=== PATIENT | female | born 1980 | race Caucasian/White ===

== ENCOUNTER 2016-07-16 13:09 | Emergency (ER) | payer BC ==
--- NOTE | 2016-07-16 13:46 | ER Document Report ---
ED Medical Screen (RME) - General Stated Complaint: LEFT EYE REDNESS,IRRITATION,SWELLING Mode of Arrival: Ambulatory Information source: Patient Notes: Patient complains of left eye redness and matting. Patient is currently wearing glasses and states she has not worn contact lenses for several weeks. Patient complains of some blurred vision to left eye. I have greeted and performed a rapid initial assessment of this patient. A comprehensive ED assessment and evaluation of the patient, analysis of test results and completion of the medical decision making process will be conducted by additional ED providers. TRAVEL OUTSIDE OF THE [place] IN LAST 30 DAYS: No - Related Data Allergies/Adverse Reactions: No Known Allergies Allergy (Verified 07/16/16 13:45) Past Medical History Pulmonary Medical History: Reports: Hx Asthma - as child Neurological Medical History: Reports: Hx Migraine Musculoskeltal Medical History: Reports Hx Arthritis Psychiatric Medical History: Reports: Hx Anxiety, Hx Bipolar Disorder, Hx Depression Infectious Medical History: Denies: Hx MRSA Past Surgical History: Reports: Hx Hysterectomy, Hx Tubal Ligation - Immunizations Immunizations up to date: Yes Hx Diphtheria, Pertussis, Tetanus Vaccination: Yes Physical Exam - Vital signs Vitals: Temp Pulse Resp BP Pulse Ox 98.2 F 76 16 106/57 L 98 07/16/16 13:16 07/16/16 13:16 07/16/16 13:16 07/16/16 13:16 07/16/16 13:16 - HEENT Conjunctiva: Injected - Left eye Course - Vital Signs Vital signs: Temp Pulse Resp BP Pulse Ox 98.2 F 76 16 106/57 L 98 07/16/16 13:16 07/16/16 13:16 07/16/16 13:16 07/16/16 13:16 07/16/16 13:16
[2016-07-16] MEDS ORDERED: NEOMY/BACITRAC ZN/POLY OINT 15 GM TP ONE (18:00)
--- NOTE | 2016-07-16 18:02 | ER Document Report ---
ED Eye Complaint - General Time seen by provider: 17:45 Mode of Arrival: Ambulatory Information source: Patient TRAVEL OUTSIDE OF THE U.[place]. IN LAST 30 DAYS: No - HPI Patient complains to provider of: Bilateral eye redness and irritation Onset: Other Associated symptoms: Other - see above - General Chief Complaint: Redness of Eye Stated Complaint: LEFT EYE REDNESS,IRRITATION,SWELLING Notes: 36 year old female presents to the ED complaining of bilateral eye erythema, irritation, and discharge that has been present since yesterday. Patient explains that the irritation started with the left eye and it spread to the right eye this morning. Patient woke up with bilateral matted eyes. Patient states that she does use contact lenses, but has not used them in the past 2 weeks. ([employer]) - Related Data Allergies/Adverse Reactions: No Known Allergies Allergy (Verified 07/16/16 13:45) Past Medical History - General Information source: Patient - Social History Smoking Status: Current Every Day Smoker Chew tobacco use (# tins/day): Yes Family History: Reviewed & Not Pertinent Patient has suicidal ideation: No Patient has homicidal ideation: No Pulmonary Medical History: Reports: Hx Asthma - as child Neurological Medical History: Reports: Hx Migraine Renal/ Medical History: Denies: Hx Peritoneal Dialysis Musculoskeltal Medical History: Reports Hx Arthritis Psychiatric Medical History: Reports: Hx Anxiety, Hx Bipolar Disorder, Hx Depression Infectious Medical History: Denies: Hx MRSA Past Surgical History: Reports: Hx Hysterectomy, Hx Tubal Ligation - Immunizations Immunizations up to date: Yes Hx Diphtheria, Pertussis, Tetanus Vaccination: Yes Review of Systems - Review of Systems Constitutional: No symptoms reported EENT: See HPI, Eye discharge - bilateral, Blurred vision, Other - Bilateral eye erythema and irritation Cardiovascular: No symptoms reported Respiratory: No symptoms reported Gastrointestinal: No symptoms reported Genitourinary: No symptoms reported Female Genitourinary: No symptoms reported Musculoskeletal: No symptoms reported Skin: No symptoms reported Hematologic/Lymphatic: No symptoms reported Neurological/Psychological: No symptoms reported Physical Exam - Vital signs Interpretation: Normal - General General appearance: Alert In distress: None - HEENT Head: Normocephalic, Atraumatic Eyes: Other - left sclera erythema with green/yellow discharge on the eye lids. Right eye normal.. No: Normal Extraocular movements intact: Yes Pupils: PERRL - Respiratory Respiratory status: No respiratory distress Breath sounds: Normal - Cardiovascular Rhythm: Regular Heart sounds: Normal auscultation - Abdominal Inspection: Normal - Back Back: Normal - Extremities General upper extremity: Normal inspection, Normal ROM General lower extremity: Normal inspection, Normal ROM - Neurological Neuro grossly intact: Yes Cognition: Normal Orientation: AAOx4 [place] Coma Scale Eye Opening: Spontaneous [place] Coma Scale Verbal: Oriented [place] Coma Scale Motor: Obeys Commands [place] Coma Scale Total: 15 Speech: Normal - Psychological Associated symptoms: Normal affect, Normal mood - Skin Skin Temperature: Warm Skin Moisture: Dry Skin Color: Normal Discharge - Discharge Clinical Impression: Conjunctivitis Qualifiers: Conjunctivitis type: acute Acute conjunctivitis type: unspecified Laterality: left Qualified Code(s): H10.32 - Unspecified acute conjunctivitis, left eye Condition: Stable Disposition: HOME, SELF-CARE Instructions: Eyedrop Use ([facility]) Additional Instructions: Conjunctivitis You have an infection in your eye, commonly known as "pink eye." Conjunctivitis causes redness, mild discomfort, itching, and mattering on the eyelids. It is very contagious, so you must be careful to wash your hands after touching your face so you don't pass the infection on to others. Conjunctivitis is caused by both viruses and bacteria. It usually responds quickly to treatment with antibiotic drops. These should be placed in the eye as prescribed (usually every three to four hours while you're awake). If you wear contact lenses, don't put them in your eyes until the infection is cleared and you are no longer using the drops (unless your doctor advises you otherwise). Should you develop increasing eye pain, severe swelling, decreased vision, or fail to improve as expected, please return for re-examination. Up with her primary care physician to 3 days return for increasing worsening or new symptoms Prescriptions: Sulfacetamide Sodium [Bleph-10] 2 drop OD Q4H #5 ml Forms: Return to Work Scribe Documentation - Scribe Written by Irais:: Irais Dasilva, 07/16/2016 0524 acting as scribe for :: Trent
[2016-07-16 18:33] VITALS: BP 95/64
== END 2016-07-16 18:31 | disposition home or self-care (01) ==
LOC: ER 13:09
DX: H10.32 Unspecified acute conjunctivitis, left eye (principal); H57.8 Other specified disorders of eye and adnexa; H53.8 Other visual disturbances; F17.200 Nicotine dependence, unspecified, uncomplicated
CPT/HCPCS: 99282; J3490

== ENCOUNTER 2017-05-14 08:45 | Day surgery (SDC) | payer BC ==
[~2017-05-14 08:45] MED LIST: CEFAZOLIN 1 GM/D5W RTU 1 GM/50 ML RTUPB IV PRN
[2017-05-14] MEDS ORDERED: ONDANSETRON HCL INJ/PF 4 MG/2 ML SDV ONE (09:04)
[2017-05-14] MEDS ORDERED: MIDAZOLAM 2 MG/2 ML INJ ONE (09:04)
[2017-05-14] MEDS ORDERED: FENTANYL CITRATE INJ/PF 100 MCG/2 ML AMPUL ONE (09:04)
[2017-05-14] MEDS ORDERED: PROPOFOL INJ 200 MG/20 ML VIAL IV ONE (09:04)
[2017-05-14] MEDS ORDERED: NORMAL SALINE INJ/PF 0.9% 10 ML SDV ONE (10:25)
[2017-05-14] MEDS ORDERED: BUPIVACAINE HCL 0.5 % INJ/PF 30 ML SDV ONE (10:25)
[2017-05-14] MEDS ORDERED: POLYMYXIN B SULFATE INJ 500000 UNIT VIAL ONE (10:25)
[2017-05-14] MEDS ORDERED: LIDOCAINE 2% INJ (20 MG/ML) 20 ML MDV ONE (10:25)
[2017-05-14] MEDS ORDERED: BACITRACIN INJ 50,000 UNIT VIAL ONE (10:26)
[2017-05-14] MEDS ORDERED: OXYCODONE-ACETAMINOPHEN 5-325 MG TABLET ONE ×2 (12:13→12:14)
--- NOTE | 2017-05-14 13:43 | SURGICARE OPERATIVE REPORT E ---
[facility] NAME: DERIK PATEL AGE: 37Y DATE OF SURGERY: 05/14/2017 ROOM: PREOPERATIVE DIAGNOSIS: BENIGN NEOPLASM, PLANTAR ASPECT, RIGHT FOOT. POSTOPERATIVE DIAGNOSIS: BENIGN NEOPLASM, PLANTAR ASPECT, RIGHT FOOT. OPERATION: Excision of mass, plantar aspect of the right foot. SURGEON: SLAVA ABDUL DPM HEEL CEMENTER MACHINE: Chente Munoz DPM ANESTHESIA: General. TISSUE REMOVED OR ALTERED: PROCEDURE: Following induction of general anesthesia, the right foot and leg was prepped and draped in the usual sterile manner. A pneumatic tourniquet was placed around the right ankle and inflated to 250 mmHg, after exsanguination of the limb with the Esmarch bandage. The following surgical procedure was then performed: Excision of mass, plantar aspect of right foot. Attention was directed to the plantar aspect of the right foot, over the second metatarsal head, where an approximately 3-cm linear incision was made. The incision was deepened via blunt dissection. This brought into view a thickened mass. Utilizing tenotomy scissors, the mass was freed from its soft tissue attachments and removed in toto from the wound. The wound was inspected and it appeared that all the remaining tissue was normal in appearance. The mass measured approximately 2 cm in length and about 0.3 cm at its widest point. This was sent for pathology. The area was then flushed with copious amounts of antibacterial saline solution. The subcutaneous tissue was coapted and maintained utilizing simple interrupted sutures of 4-0 Vicryl and the skin was coapted and maintained utilizing horizontal mattress sutures of 5-0 nylon. The surgical site was then localized anesthetized utilizing 10 mL of a 50/50 mixture of 0.5% Marcaine and 2% lidocaine plain. The foot was then cleansed utilizing alcohol foam. A dry sterile dressing was then applied, consisting of Noel silk, 4 x 4's, Conform, Kerlix and Coban. The pneumatic tourniquet was released. It was noted that all digits were warm and viable. The patient was transferred to the recovery room. DICTATING PHYSICIAN: SLAVA ABDUL D.P.M. [id number] PHY#: [id number] ID: [id number] JOB#: [id number] ACCT: [id number] cc:SLAVA ABDUL DPM >
--- NOTE | 2017-05-14 14:23 | SURGICARE DISCHARGE SUMMARY E ---
[facility] Discharge Summary NAME: DERIK PATEL AGE: 37Y ADMITTED: 05/14/2017 DISCHARGED: 05/14/2017 SURGICAL PROCEDURE: Excision of mass, plantar aspect of right foot. POSTOPERATIVE DIAGNOSIS: A BENIGN NEOPLASM, CONNECTIVE TISSUE, RIGHT FOOT. SURGEON: SLAVA ABDUL DPM MANUSCRIPTS ARCHIVIST: Chente Munoz DPM PROCEDURE: Patient was admitted to [facility], with chief complaint of a painful area underneath her right foot. A diagnostic ultrasound was performed in the office and it did show that there was a soft tissue mass located at the plantar aspect of the right foot above the second metatarsal head. The patient desired to have this surgically excised. She underwent the above surgical procedure without any complications and was transferred to the recovery room. She was discharged with a surgical shoe and ice pack, postoperative instructions including weightbearing only on the heel of her right foot, and postoperative a prescription for Percocet 5/325 mg #50 and Phenergan 25 mg #25. She was given a follow-up appointment in the doctor's office in 1 week. Patient is discharged from [facility]. DICTATING PHYSICIAN: SLAVA ABDUL D.P.M. [id number] PHY#: [id number] ID: [id number] JOB#: [id number] ACCT: [id number] cc:SLAVA ABDUL DPM >
== END 2017-05-14 13:10 | disposition home or self-care (01) ==
LOC: SC 08:45
PROVIDERS: ATTEND Podiatrist Foot Surgery
PROC: 0JBQ0ZZ Excision of Right Foot Subcutaneous Tissue and Fascia, Open Approach (ICD-10-PCS; principal; 2017-05-14 10:00)
DX: D21.21 Benign neoplasm of connective and other soft tissue of right lower limb, including hip (principal); G43.909 Migraine, unspecified, not intractable, without status migrainosus; F17.210 Nicotine dependence, cigarettes, uncomplicated; F41.9 Anxiety disorder, unspecified; Z79.899 Other long term (current) drug therapy
CPT/HCPCS: 88304 ×2; 28039; J2250; J3490 ×4; J0690; J3010; J2405; J2704; 400

== ENCOUNTER 2017-11-21 16:56 | Emergency (ER) | payer BC ==
[2017-11-21 17:10] VITALS: BP 108/61
--- NOTE | 2017-11-21 18:10 | RADIOLOGY REPORT (SQ) ---
EXAM DESCRIPTION: CHEST 2 VIEWS COMPLETED DATE/TIME: 11/21/2017 5:49 pm REASON FOR STUDY: persistent cough COMPARISON: 10/24/2014 EXAM PARAMETERS: NUMBER OF VIEWS: two views TECHNIQUE: Digital Frontal and Lateral radiographic views of the chest acquired. RADIATION DOSE: NA LIMITATIONS: none FINDINGS: LUNGS AND PLEURA: No opacities, masses or pneumothorax. No pleural effusion. MEDIASTINUM AND HILAR STRUCTURES: No masses or contour abnormalities. HEART AND VASCULAR STRUCTURES: Heart normal size. No evidence for failure. BONES: No acute findings. HARDWARE: None in the chest. OTHER: No other significant finding. IMPRESSION: NO ACUTE RADIOGRAPHIC FINDING IN THE CHEST. TECHNICAL DOCUMENTATION: JOB ID: [id number] [employer]- All Rights Reserved Reading location - IP/workstation name: RL
--- NOTE | 2017-11-21 18:12 | ER Document Report ---
HPI - HPI Patient complains to provider of: Still feels bad Onset: Other - Earlier this week Pain Level: 3 Context: 37-year-old female smoker is being treated with Levaquin and prednisone and albuterol metered-dose inhaler for possible pneumonia diagnosed in the office by Jorje garibay 2 days ago. She still feels really bad and has a headache. No chest pain or shortness of breath. She does not have any sinus pain or postnasal drip. Her vital signs are stable. She was given no work until next week. Associated Symptoms: None Exacerbated by: Denies Relieved by: Denies Similar symptoms previously: No Recently seen / treated by doctor: No - ROS Systems Reviewed and Negative: Yes All other systems reviewed and negative - REPRODUCTIVE Reproductive: DENIES: : Past Medical History - General Information source: Patient - Social History Smoking Status: Current Every Day Smoker Frequency of alcohol use: None Drug Abuse: None Lives with: Family Family History: Reviewed & Not Pertinent Neurological Medical History: Reports: Hx Migraine Renal/ Medical History: Denies: Hx Peritoneal Dialysis Musculoskeltal Medical History: Reports Hx Arthritis Psychiatric Medical History: Reports: Hx Anxiety, Hx Bipolar Disorder, Hx Depression Past Surgical History: Reports: Hx Hysterectomy, Hx Tubal Ligation - Immunizations Immunizations up to date: Yes Hx Diphtheria, Pertussis, Tetanus Vaccination: Yes Vertical Provider Document - CONSTITUTIONAL Agree With Documented VS: Yes Exam Limitations: No Limitations - INFECTION CONTROL TRAVEL OUTSIDE OF THE [place] IN LAST 30 DAYS: No - HEENT HEENT: Normocephalic, Pharyngeal Erythema - Minimal. negative: Conjuctival Injection, Tympanic Membrane Red - NECK Neck: Supple. negative: Lymphadenopathy-Left, Lymphadenopathy-Right - RESPIRATORY Respiratory: Breath Sounds Normal, No Respiratory Distress - CARDIOVASCULAR Cardiovascular: Regular Rate, Regular Rhythm - GI/ABDOMEN Gastrointestinal: Abdomen Soft, Abdomen Non-Tender - MUSCULOSKELETAL/EXTREMETIES Musculoskeletal/Extremeties: MAEW - NEURO Level of Consciousness: Awake - DERM Integumentary: No Rash Course - Re-evaluation Re-evalutation: 11/21/17 18:19 X-rays negative per radiologist we will have her continue her medications and add Tessalon Perles for the cough - Vital Signs Vital signs: Temp Pulse Resp BP Pulse Ox 98.5 F 72 18 108/61 98 11/21/17 17:08 11/21/17 17:08 11/21/17 17:08 11/21/17 17:08 11/21/17 17:08 Discharge - Discharge Clinical Impression: Cough, Bronchitis Upper respiratory infection Qualifiers: URI type: unspecified viral URI Qualified Code(s): J06.9 - Acute upper respiratory infection, unspecified Condition: Good Disposition: HOME, SELF-CARE Instructions: Acetaminophen, Upper Respiratory Illness ([facility]), Tessalon Perles ( [facility]), Bronchitis ([facility]) Additional Instructions: Drink plenty of fluids Rest Tylenol for fever Motrin for muscle pain and headache Tessalon Perles for the cough Continue the antibiotics that were given by her primary care doctor Use the albuterol metered-dose inhaler 2 puffs every 3-4 hours for the cough Quit smoking Prescriptions: Benzonatate [Tessalon Perles 100 mg Capsule] 100 mg PO ASDIR PRN #40 capsule PRN Reason: Referrals: JORJE GARIBAY PA-C [NO LOCAL MD] - 11/24/17
== END 2017-11-21 18:27 | disposition home or self-care (01) ==
LOC: ER 16:56
DX: J40 Bronchitis, not specified as acute or chronic (principal); J06.9 Acute upper respiratory infection, unspecified; F17.210 Nicotine dependence, cigarettes, uncomplicated; R51 Headache; Z90.710 Acquired absence of both cervix and uterus
CPT/HCPCS: 71046; 99283

== ENCOUNTER 2018-05-10 10:52 | Emergency (ER) | payer BC ==
[2018-05-10] MEDS ORDERED: ONDANSETRON HCL INJ/PF 4 MG/2 ML SDV IV ONE (11:09)
--- NOTE | 2018-05-10 11:10 | ER Document Report ---
ED Medical Screen (RME) - General Chief Complaint: Abdominal Pain Stated Complaint: ABDOMINAL PAIN Time Seen by Provider: 05/10/18 11:04 Mode of Arrival: Ambulatory Information source: Patient, [facility] Records Notes: 38-year-old female with history of hysterectomy, tubal ligation presents with complaint of right lower quadrant abdominal pain that started 1 month prior to arrival. She describes it as intermittent, stabbing and associated with nausea but no vomiting or diarrhea. I have greeted and performed a rapid initial assessment of this patient. A comprehensive ED assessment and evaluation of the patient, analysis of test results and completion of medical decision making process we will be contacted by additional ED providers. PHYSICAL EXAMINATION: Vital signs reviewed-within normal limits GENERAL: Well-appearing, well-nourished and in no acute distress. LUNGS: No respiratory distress Musculoskeletal: Normal range of motion NEUROLOGICAL: Normal speech, normal gait. PSYCH: Normal mood, normal affect. SKIN: Warm, Dry, normal turgor, no rashes or lesions noted. TRAVEL OUTSIDE OF THE [place].S. IN LAST 30 DAYS: No - HPI Onset: Other Onset/Duration: Intermittent Quality of pain: Stabbing Severity: Moderate Associated Symptoms: Nausea. denies: Diarrhea, Fever, Vomiting Exacerbated by: Movement Relieved by: Denies Similar symptoms previously: Yes Recently seen / treated by doctor: No - Related Data Smoking: Non-smoker Frequency of alcohol use: None Drug Abuse: None Allergies/Adverse Reactions: No Known Allergies Allergy (Verified 11/21/17 16:57) Past Medical History Neurological Medical History: Reports: Hx Migraine Renal/ Medical History: Denies: Hx Peritoneal Dialysis Musculoskeltal Medical History: Reports Hx Arthritis Psychiatric Medical History: Reports: Hx Anxiety, Hx Bipolar Disorder, Hx Depression Past Surgical History: Reports: Hx Hysterectomy, Hx Tubal Ligation - Immunizations Immunizations up to date: Yes Hx Diphtheria, Pertussis, Tetanus Vaccination: Yes Doctor's Discharge - Discharge Referrals: JORJE JOHNSON PA-C [Primary Care Provider] - Follow up as needed
--- NOTE | 2018-05-10 11:41 | ER Document Report ---
ED General - General Chief Complaint: Abdominal Pain Stated Complaint: ABDOMINAL PAIN Time Seen by Provider: 05/10/18 11:04 Mode of Arrival: Ambulatory TRAVEL OUTSIDE OF THE [place] IN LAST 30 DAYS: No - HPI Notes: Patient is a 38-year-old female that presents to the emergency department for chief complaint of right lower quadrant abdominal pain. Patient states she has had pain in her right lower quadrant for the last month. Her pain is been intermittent until yesterday when the pain became constant. She states it is now a sharp pain that radiates from her right lower quadrant to her right side. It is worse with movement. She denies relieving factors. She has not taken any medication at home for her symptoms. She does have some mild nausea but denies any vomiting. She denies any diarrhea, constipation or bloody stools. She denies any fevers or chills. Patient has not had issues with her GI tract in the past. She has not seen a provider for this pain in the last month. Past Medical History: Anxiety Past Surgical History: Hysterectomy, tubal ligation Social History: Daily tobacco. Occasional alcohol. Denies drug use Family History: Reviewed and noncontributory for presenting illness Allergies: Reviewed, see documented allergy list. REVIEW OF SYSTEMS: CONSTITUTIONAL : No fever No chills No diaphoresis No recent illness EENT: No vision changes No congestion No sore throat CARDIOVASCULAR: No chest pain No palpitations RESPIRATORY: No shortness of breath No cough No difficulty breathing GASTROINTESTINAL: abdominal pain No nausea No vomiting No diarrhea GENITOURINARY: No dysuria No hematuria No difficulty urinating MUSCULOSKELETAL: No back pain No leg pain No arm pain SKIN: No rashes No lesions LYMPHATIC: No swollen, enlarged glands. NEUROLOGICAL: No lightheadedness No headache No weakness No paresthesias PSYCHIATRIC: No anxiety No depression PHYSICAL EXAMINATION: Vital signs reviewed, nursing noted reviewed. GENERAL: Well-appearing, well-nourished and in no acute distress. HEAD: Atraumatic, normocephalic. EYES: Eyes appear normal, extraocular movements intact, sclera anicteric, conjunctiva are normal. ENT: nares patent, oropharynx clear without exudates. Moist mucous membranes. NECK: Normal range of motion, supple without lymphadenopathy LUNGS: Breath sounds clear to auscultation bilaterally and equal. No wheezes rales or rhonchi. HEART: Regular rate and rhythm without murmurs ABDOMEN: Soft, right lower quadrant and right upper quadrant tenderness, normoactive bowel sounds. No rebound, guarding, or rigidity. No masses appreciated. EXTREMITIES: Nontender, good range of motion, no pitting or edema. NEUROLOGICAL: No focal neurological deficits. Moves all extremities spontaneously Motor and sensory grossly intact on exam. PSYCH: Normal mood, normal affect. SKIN: Warm, Dry, normal turgor, no rashes or lesions noted on exposed skin - Related Data Allergies/Adverse Reactions: No Known Allergies Allergy (Verified 11/21/17 16:57) Past Medical History - General Information source: Patient, [facility] Records - Social History Smoking Status: Current Every Day Smoker Chew tobacco use (# tins/day): No Frequency of alcohol use: None Drug Abuse: None Family History: Reviewed & Not Pertinent Patient has suicidal ideation: No Patient has homicidal ideation: No Neurological Medical History: Reports: Hx Migraine Renal/ Medical History: Denies: Hx Peritoneal Dialysis Musculoskeletal Medical History: Reports Hx Arthritis Psychiatric Medical History: Reports: Hx Anxiety, Hx Bipolar Disorder, Hx Depression Past Surgical History: Reports: Hx Hysterectomy, Hx Tubal Ligation - Immunizations Immunizations up to date: Yes Hx Diphtheria, Pertussis, Tetanus Vaccination: Yes Course - Re-evaluation Re-evalutation: 05/10/18 11:41 Vitals reviewed. Nursing notes reviewed. Patient is afebrile and nontoxic in appearance. She was given Zofran for her nausea and has declined wanting any medication for pain. 05/10/18 12:30 Patient reevaluated patient reevaluated and has remained hemodynamically stable. She states her pain is tolerable and still does not want medication for pain. Her workup here is unremarkable. Her appendix is normal. CT scan shows no other acute intra-abdominal process. Lab work shows no electrolyte derangements or leukocytosis to suggest infection. Patient will be given Bentyl for symptomatic management at home. She will be given GI for follow-up. She will return for any new or worsening symptoms. She is stable at discharge. Laboratory 05/10/18 05/10/18 05/10/18 11:10 11:10 11:10 WBC 8.5 RBC 4.96 Hgb 14.8 Hct 43.6 MCV 88 MCH 29.9 MCHC 34.0 RDW 14.0 Plt Count 292 Seg Neutrophils % 56.5 Lymphocytes % 35.5 Monocytes % 5.5 Eosinophils % 1.4 Basophils % 1.1 Absolute Neutrophils 4.8 Absolute Lymphocytes 3.0 Absolute Monocytes 0.5 Absolute Eosinophils 0.1 Absolute Basophils 0.1 Sodium 139.5 Potassium 4.2 Chloride 106 Carbon Dioxide 26 Anion Gap 8 BUN 10 Creatinine 0.53 Est GFR ( Amer) > 60 Est GFR (Non-Af Amer) > 60 Glucose 88 Calcium 9.7 Total Bilirubin 0.5 Direct Bilirubin 0.2 Neonat Total Bilirubin Not Reportable Neonat Direct Bilirubin Not Reportable Neonat Indirect Bili Not Reportable AST 23 ALT 40 Alkaline Phosphatase 77 Total Protein 7.2 Albumin 4.3 Lipase 49.5 Urine Color YELLOW Urine Appearance CLOUDY Urine pH 6.0 Ur Specific Lebo 1.008 Urine Protein NEGATIVE Urine Glucose (UA) NEGATIVE Urine Ketones NEGATIVE Urine Blood NEGATIVE Urine Nitrite NEGATIVE Urine Bilirubin NEGATIVE Urine Urobilinogen NEGATIVE Ur Leukocyte Esterase NEGATIVE Urine WBC (Auto) 2 Urine RBC (Auto) 0 Urine Bacteria (Auto) TRACE Squamous Epi Cells Auto 25 Amorphous Sediment Auto TRACE Urine Mucus (Auto) RARE Urine Ascorbic Acid NEGATIVE Abdomen/Pelvis CT 05/10/18 11:39 IMPRESSION: No acute findings. - Laboratory Result Diagrams: 05/10/18 11:10 05/10/18 11:10 Discharge - Discharge Clinical Impression: Abdominal pain Qualifiers: Abdominal location: right lower quadrant Qualified Code(s): R10.31 - Right lower quadrant pain Condition: Stable Disposition: HOME, SELF-CARE Instructions: Abdominal Pain ([facility]) Additional Instructions: Please return to the emergency department if you have any worsening, or concern of your symptoms. Please return to the emergency department if you develop chest pain, difficulty breathing, severe abdominal pain, or ongoing vomiting. Please follow-up with your primary care physician in 2-3 days and any other recommended physicians. If prescribed, take all medications as directed. If you have any questions or concerns do not hesitate to return the emergency department for evaluation. Prescriptions: Dicyclomine HCl [Bentyl 20 mg Tablet] 20 mg PO QID PRN #20 tablet PRN Reason: Abdominal Cramping Referrals: JORJE JOHNSON PA-C [Primary Care Provider] - Follow up as needed SAMSON ALFONSO MD [ACTIVE STAFF] - Follow up in 3-5 days
[2018-05-10 11:47] LABS: ABSOLUTE BASOPHILS # (AUTO) 0.1 10^3/uL (0.0-0.2); ABSOLUTE EOSINOPHILS # (AUTO) 0.1 10^3/uL (0.0-0.6); ABSOLUTE MONOCYTES (AUTO) 0.5 10^3/uL (0.1-1.4); ABSOLUTE NEUT (AUTO) 4.8 10^3/uL (1.7-8.2); BASOPHILS % (AUTO) 1.1 % (0-2); EOSINOPHILS % (AUTO) 1.4 % (0-6); HEMATOCRIT 43.6 % (36.0-47.0); HEMOGLOBIN 14.8 g/dL (12.0-15.5); LYMPHOCYTES % (AUTO) 35.5 % (13-45); MEAN CORPUSCULAR HEMOGLOBIN 29.9 pg (27.0-33.4); MEAN CORPUSCULAR VOLUME 88 fl (80-97); MONOCYTES % (AUTO) 5.5 % (3-13); PLATELET COUNT 292 10^3/uL (150-450); RED BLOOD COUNT 4.96 10^6/uL (3.72-5.28); SEGMENTED NEUTROPHILS % (AUTO) 56.5 % (42-78); TOTAL CELLS COUNTED % (AUTO) 100 %; WHITE BLOOD COUNT 8.5 10^3/uL (4.0-10.5)
[2018-05-10 12:02] LABS: AMORPHOUS SEDIMENT,URINE TRACE /HPF; APPEARANCE,URINE CLOUDY; BILIRUBIN,URINE NEGATIVE (NEGATIVE); COLOR,URINE YELLOW; GLUCOSE, URINE NEGATIVE (NEGATIVE); KETONES,URINE NEGATIVE (NEGATIVE); LEUKOCYTE ESTERASE,URINE NEGATIVE (NEGATIVE); NITRITE,URINE NEGATIVE (NEGATIVE); PROTEIN,URINE NEGATIVE (NEGATIVE); URINE SPECIFIC GRAVITY 1.008; UROBILINOGEN,URINE NEGATIVE mg/dL (<2.0)
[2018-05-10 12:04] LABS: ALANINE AMINOTRANSFERASE 40 U/L (9-52); ALBUMIN 4.3 g/dL (3.5-5.0); ALKALINE PHOSPHATASE 77 U/L (38-126); ANION GAP 8 (5-19); ASPARTATE AMINO TRANSFERASE 23 U/L (14-36); BILIRUBIN,DIRECT 0.2 mg/dL (0.0-0.4); BILIRUBIN,TOTAL 0.5 mg/dL (0.2-1.3); BLOOD UREA NITROGEN 10 mg/dL (7-20); CALCIUM 9.7 mg/dL (8.4-10.2); CARBON DIOXIDE 26 mmol/L (22-30); CHLORIDE 106 mmol/L (98-107); GLUCOSE 88 mg/dL (75-110); LIPASE 49.5 U/L (23-300); POTASSIUM 4.2 mmol/L (3.6-5.0); SODIUM 139.5 mmol/L (137-145); TOTAL PROTEIN 7.2 g/dL (6.3-8.2)
--- NOTE | 2018-05-10 12:16 | RADIOLOGY REPORT (SQ) ---
EXAM DESCRIPTION: CT ABD/PELVIS WITH IV ONLY COMPLETED DATE/TIME: 05/10/2018 12:04 pm REASON FOR STUDY: RLQ pain COMPARISON: None. TECHNIQUE: CT scan of the abdomen and pelvis performed using helical scanning technique with dynamic intravenous contrast injection. No oral contrast. Images reviewed with lung, soft tissue, and bone windows. Reconstructed coronal and sagittal MPR images reviewed. Delayed images for evaluation of the urinary system also acquired. All images stored on PACS. All CT scanners at this facility use dose modulation, iterative reconstruction, and/or weight based d osing when appropriate to reduce radiation dose to as low as reasonably achievable (ALARA). [facility]: Dose Right [facility]: CareDose [facility]: Dose Right [facility]: Teradose 4D [facility]: LSEO CONTRAST TYPE AND DOSE: contrast/concentration: Isovue 350.00 mg/ml; Total Contrast Delivered: 86.0 ml; Total Saline Delivered: 69.0 ml RENAL FUNCTION: None required. The patient is less than 50 years old. RADIATION DOSE: CT Rad equipment meets quality standard of care and radiation dose reduction techniq ues were employed. CTDIvol: 7.7 - 10.9 mGy. DLP: 1083 mGy-cm.. LIMITATIONS: None. FINDINGS: LOWER CHEST: No significant findings. No nodules or infiltrates. LIVER: Normal size. No masses. No dilated ducts. SPLEEN: Normal size. No focal lesions. PANCREAS: No masses. No significant calcifications. No adjacent inflammation or peripancreatic fluid collections. Pancreatic duct not dilated. GALLBLADDER: No identified stones by CT criteria. No inflammatory changes to suggest cholecystitis. ADRENAL GLANDS: No significant masses or asymmetry. RIGHT KIDNEY AND URETER: No solid masses. No significant calcifications. No hydronephrosis or hyd roureter. LEFT KIDNEY AND URETER: No solid masses. No significant calcifications. No hydronephrosis or hydr oureter. AORTA AND VESSELS: No aneurysm. No dissection. Renal arteries, SMA, celiac without stenosis. RETROPERITONEUM: No retroperitoneal adenopathy, hemorrhage or masses. BOWEL AND PERITONEAL CAVITY: Occasional sigmoid diverticulum. No masses or inflammatory changes. No free fluid or peritoneal masses. APPENDIX: Normal. PELVIS: No mass. No free fluid. Normal bladder. ABDOMINAL WALL: No masses. No hernias. BONES: No significant or acute findings. OTHER: No other significant finding. IMPRESSION: No acute findings. TECHNICAL DOCUMENTATION: JOB ID: [id number] Quality ID # [id number]: Final reports with documentation of one or more dose reduction techniques (e.g., Au tomated exposure control, adjustment of the mA and/or kV according to patient size, use of iterative reconstruction technique) 2010 [employer]- All Rights Reserved Reading location - IP/workstation name: [email or web address]
[2018-05-10 12:50] VITALS: BP 98/44
== END 2018-05-10 12:50 | disposition home or self-care (01) ==
LOC: ER 10:52
DX: R10.31 Right lower quadrant pain (principal); R11.0 Nausea; Z90.710 Acquired absence of both cervix and uterus; Z98.51 Tubal ligation status; F17.200 Nicotine dependence, unspecified, uncomplicated
CPT/HCPCS: 99284; 96374; 36415; 83690; 85025; 80053; 81001; 74177; J2405